=== PATIENT | female | born 1985 | race African-American/Black ===

== ENCOUNTER 2018-07-06 19:32 | Emergency (ER) | payer OTHER ==
[~2018-07-06] VITALS: Ht 167.6 cm; Wt 85.7 kg
[2018-07-06 20:03] VITALS: BP 140/94
[2018-07-06] MEDS ORDERED: ACETAMINOPHEN ES 500 MG TABLET ONE (20:16)
[2018-07-06] MEDS ORDERED: ACETAMINOPHEN 325 MG TABLET PO ONE (20:30)
== END 2018-07-06 20:33 | disposition home or self-care (01) ==
LOC: ER 19:34
DX: R51 Headache (principal); M54.2 Cervicalgia; V49.69XA Unspecified car occupant injured in collision with other motor vehicles in traffic accident, initial encounter; Y93.89 Activity, other specified; Y92.413 State road as the place of occurrence of the external cause; Y99.8 Other external cause status
CPT/HCPCS: 99282; A4606; Z7610